=== PATIENT | male | born 1980 | race Caucasian/White ===

== ENCOUNTER 2019-05-14 13:59 | Emergency (ER) | payer MEDICAID, OTHER ==
[~2019-05-14] VITALS: Ht 170.2 cm; Wt 98.0 kg
[~2019-05-14 13:59] MED LIST: CYCL-1 PO; IBUP-1984 PO
[2019-05-14] MEDS ORDERED: L. R1CAP4 PO (15:32)
[2019-05-14] MEDS ORDERED: CLIN150C2 PO (15:32)
[2019-05-14 15:38] VITALS: BP 162/68
== END 2019-05-14 15:39 | disposition home or self-care (01) ==
LOC: ER 14:00
DX: K08.89 Other specified disorders of teeth and supporting structures (principal); F12.90 Cannabis use, unspecified, uncomplicated; Z88.0 Allergy status to penicillin
CPT/HCPCS: 99283